=== PATIENT | female | born 1955 | race Hispanic/Latino ===

== ENCOUNTER 2017-08-06 10:17 | Emergency (ER) | payer BC ==
[2017-08-06 10:21] VITALS: BP 132/71; RESP 20; TEMP 97.9; O2SAT 99; BMI 25.1
--- NOTE | 2017-08-06 11:21 | ED PDOC ---
HPI: Headache Time Seen by Provider: 08/06/17 10:26 Chief Complaint (Nursing): Dizziness/Lightheaded Chief Complaint (Provider): Dizziness/Headache History Per: Patient History/Exam Limitations: no limitations Onset/Duration Of Symptoms: Hrs (morning prior to arrival ) Current Symptoms Are (Timing): Still Present Quality: Dull Preceeding Symptoms: None Associated Symptoms: Nausea Additional History Per: Patient Additional Complaint(s): Catrina Jansen is a 62 year old female presenting to the ED for an evaluation of dizziness beginning this morning prior to arrival. The patient states she woke up and started having dizziness, described as a spinning sensation associated with a headache. She reports taking Advil without relief. The patient reports her dizziness worsens on ambulation and is better when lying still. She denies any weakness, numbness, tingling, vision changes, syncope, difficulty with walking, speech changes, chest pain, or difficulty breathing. Of note, the patient reports being diagnosed with URI/Bronchitis and was prescribed Prednisone and Amoxicillin by her PMD, currently on these medications upon arrival to ED. Since then she states having side effects such as headaches and dizziness. In addition, the patient has chronic tinnitus in her bilateral ears. PMD: Joel Vaz MD - Risk Factors SAH Risk Factors: Nest Degree Relative(s) W/SAH, Marfan's Syndrome, Worst Headache Of Life Past Medical History Reviewed: Historical Data, Nursing Documentation, Vital Signs Vital Signs: Last Vital Signs Temp 97.9 F 08/06/17 10:20 Pulse 57 L 08/06/17 10:20 Resp 20 08/06/17 10:20 BP 132/71 08/06/17 10:20 Pulse Ox 99 08/06/17 10:20 - Medical History PMH: No Chronic Diseases - Surgical History Surgical History: No Surg Hx - Family History Family History: States: No Known Family Hx - Social History Alcohol: None Drugs: Denies - Home Medications Home Medications: Ambulatory Orders Medication Instructions Recorded Meclizine [Meclizine*] 25 mg PO TID PRN #20 tab 08/06/17 - Allergies Allergies/Adverse Reactions: Allergies Allergy/AdvReac Type Severity Reaction Status Date / Time No Known Allergies Allergy Verified 08/06/17 10:27 Review of Systems ROS Statement: Except As Marked, All Systems Reviewed And Found Negative Eyes: Negative for: Vision Change Cardiovascular: Negative for: Chest Pain Respiratory: Negative for: Other (no difficulty breathing) Neurological: Positive for: Headache, Dizziness. Negative for: Weakness, Numbness (or tingling), Incoordination (no difficulty with walking), Other (no episodes of syncope; no speech changes) Physical Exam - Reviewed Nursing Documentation Reviewed: Yes Vital Signs Reviewed: Yes - Physical Exam Appears: Positive for: Non-toxic, No Acute Distress Head Exam: Positive for: ATRAUMATIC, NORMOCEPHALIC Skin: Positive for: Normal Color, Warm, Dry Eye Exam: Positive for: EOMI, PERRL. Negative for: Nystagmus ENT: Positive for: Normal ENT Inspection Neck: Positive for: Painless ROM, Supple Cardiovascular/Chest: Positive for: Regular Rate, Rhythm. Negative for: Edema, Murmur Respiratory: Positive for: Normal Breath Sounds. Negative for: Rales, Wheezing , Respiratory Distress Gastrointestinal/Abdominal: Positive for: Normal Exam, Soft. Negative for: Tenderness Back: Positive for: Normal Inspection Extremity: Positive for: Normal ROM Neurologic/Psych: Positive for: Alert, Oriented (x3), Gait (steady). Negative for: Motor/Sensory Deficits - Laboratory Results Result Diagrams: 08/06/17 11:27 08/06/17 11:27 - ECG ECG: Positive for: Interpreted By Me, Viewed By Me ECG Rhythm: Positive for: Normal QRS, Normal ST Segment, Sinus Rhythm, Sinus Bradycardia. Negative for: ST/T Changes Rate: 51 O2 Sat by Pulse Oximetry: 99 (RA) Pulse Ox Interpretation: Normal - Progress Re-evaluation Time: 13:04 Condition: Re-examined, Improved Medical Decision Making Medical Decision Making: Time: 10:26 Impression: Vertigo Differential diagnosis includes peripheral vertigo, BVP, vestibular syndrome with other conditions considered. Less likely central vertigo associated with CVA. Plan: * ED ekg * BMP * Troponin I * CBC (with differential) * Antivert 25 mg PO * CT Head w/o Contrast * Reevaluation CT Head: FINDINGS: HEMORRHAGE: No intracranial hemorrhage. BRAIN: No mass effect or edema. No atrophy or chronic microvascular ischemic changes. VENTRICLES: Unremarkable. No hydrocephalus. CALVARIUM: Unremarkable. PARANASAL SINUSES: Unremarkable as visualized. No significant inflammatory changes. MASTOID AIR CELLS: Unremarkable as visualized. No inflammatory changes. OTHER FINDINGS: None. IMPRESSION: No acute intracranial abnormalities. No significant findings to account for the clinical presentation. Scribe Attestation: Documented by Keya Horn, acting as a scribe for Rishi Cononr MD. Provider Scribe Attestation: All medical record entries made by the Scribe were at my direction and personally dictated by me. I have reviewed the chart and agree that the record accurately reflects my personal performance of the history, physical exam, medical decision making, and the department course for this patient. I have also personally directed, reviewed, and agree with the discharge instructions and disposition. Disposition - Clinical Impression Clinical Impression: Dizziness - Patient ED Disposition Is Patient to be Admitted: No Doctor Will See Patient In The: Office Counseled Patient/Family Regarding: Studies Performed, Diagnosis, Need For Followup - Disposition Referrals: Joel Vaz MD [Family Provider] - Disposition: Routine/Home Disposition Time: 13:04 Condition: GOOD Additional Instructions: Take your medications as instructed. Follow up with your PCP In 2-3 days. Prescriptions: Meclizine [Meclizine*] 25 mg PO TID PRN #20 tab PRN Reason: Dizziness Instructions: Vertigo (ED)
[2017-08-06 11:30] LABS: BASO # 0.1 K/uL (0.0-0.2); BASO % 1.1 % (0.0-2.0); EOS # 0.4 K/uL (0.0-0.7); EOS % 3.5 % (0.0-4.0); HEMATOCRIT 42.2 % (34.0-47.0); LYMPH # 4.1 K/uL (1.0-4.3); LYMPH % 34.5 % (20.0-40.0); MEAN CELL VOLUME 89.5 fl (81.0-99.0); MEAN CORPUSCULAR HEMOGLOBIN 30.1 pg (27.0-31.0); MEAN CORPUSCULAR HGB CONC 33.6 g/dL (33.0-37.0); MONO % 8.3 % (0.0-10.0); NEUT # 6.3 K/uL (1.8-7.0); NEUT % 52.6 % (50.0-75.0); RED CELL DISTRIBUTION WIDTH 12.9 % (11.5-14.5)
[2017-08-06 11:43] LABS: BLOOD UREA NITROGEN 17 mg/dl (7-17); CALCIUM 9.1 mg/dL (8.4-10.2); CARBON DIOXIDE 29 mmol/L (22-30); CHLORIDE 103 mmol/L (98-107); GFR AFRICAN-AMERICAN > 60; GLUCOSE,RANDOM 95 mg/dL (65-105); POTASSIUM 4.6 MMOL/L (3.6-5.0); SODIUM 141 mmol/l (132-148)
--- NOTE | 2017-08-06 12:16 | CT ---
PROCEDURE: CT HEAD WITHOUT CONTRAST. HISTORY: dizziness COMPARISON: None available. TECHNIQUE: Axial computed tomography images were obtained through the head/brain without intravenous contrast. Radiation dose: Total exam DLP = 912.04 mGy-cm. This CT exam was performed using one or more of the following dose reduction techniques: Automated exposure control, adjustment of the mA and/or kV according to patient size, and/or use of iterative reconstruction technique. FINDINGS: HEMORRHAGE: No intracranial hemorrhage. BRAIN: No mass effect or edema. No atrophy or chronic microvascular ischemic changes. VENTRICLES: Unremarkable. No hydrocephalus. CALVARIUM: Unremarkable. PARANASAL SINUSES: Unremarkable as visualized. No significant inflammatory changes. MASTOID AIR CELLS: Unremarkable as visualized. No inflammatory changes. OTHER FINDINGS: None. IMPRESSION: No acute intracranial abnormalities. No significant findings to account for the clinical presentation.
[2017-08-06 13:21] VITALS: PULSE 71
--- NOTE | 2017-08-07 06:37 | CARD ---
APPROVED REPORT EKG Measurement Heart [id number] <Conclusion> Sinus bradycardia Otherwise normal ECG
== END 2017-08-06 13:20 | disposition home or self-care (01) ==
LOC: H.ER 10:17
DX: R42 Dizziness and giddiness (principal)

== ENCOUNTER 2018-06-21 12:12 | Emergency (ER) | payer BC ==
[2018-06-21 12:12] VITALS: BMI 25.1
[2018-06-21 12:19] VITALS: BP 126/64; PULSE 74; RESP 18; TEMP 99.2; O2SAT 100
[2018-06-21] MEDS ORDERED: PROPARACAINE/FLUORESCEIN SOD 100 DROP/5 ML BOTTLE OS STA (12:42)
[2018-06-21] MEDS ORDERED: PROPARACAINE/FLUORESCEIN SOD 100 DROP/5 ML BOTTLE ONE (13:01)
--- NOTE | 2018-06-21 13:20 | ED PDOC ---
HPI: Eye Injury/Pain Time Seen by Provider: 06/21/18 12:20 Chief Complaint (Nursing): Eye Problem Chief Complaint (Provider): Eye Problem History Per: Patient History/Exam Limitations: no limitations Onset/Duration Of Symptoms: Sudden Onset Current Symptoms Are (Timing): Still Present Additional Complaint(s): 62 year old female arrives to ED with a complaint of left eye pain sustained after she felt an unknown object from nearby [place] job strike her eye while waiting at a bus stop prior to arrival. She denies any headache or visual changes. PMD: Dr. Joel Vaz Past Medical History Reviewed: Historical Data, Nursing Documentation, Vital Signs Vital Signs: Last Vital Signs Temp 99.2 F 06/21/18 12:16 Pulse 74 06/21/18 12:16 Resp 18 06/21/18 12:16 BP 126/64 06/21/18 12:16 Pulse Ox 100 06/21/18 12:16 - Family History Family History: States: Unknown Family Hx - Home Medications Home Medications: Ambulatory Orders Medication Instructions Recorded Meclizine [Meclizine*] 25 mg PO TID PRN #20 tab 08/06/17 - Allergies Allergies/Adverse Reactions: Allergies Allergy/AdvReac Type Severity Reaction Status Date / Time clindamycin Allergy RASH Verified 06/21/18 12:15 prednisone Allergy SWELLING Verified 06/21/18 12:16 Review of Systems ROS Statement: Except As Marked, All Systems Reviewed And Found Negative Eyes: Positive for: Pain (left). Negative for: Vision Change Neurological: Negative for: Headache Physical Exam - Reviewed Nursing Documentation Reviewed: Yes Vital Signs Reviewed: Yes - Physical Exam Appears: Positive for: No Acute Distress Head Exam: Positive for: ATRAUMATIC, NORMAL INSPECTION, NORMOCEPHALIC Eye Exam: Positive for: EOMI, PERRL, Other (small subconjunctival hemorrhage in left medial eye) Neurologic/Psych: Positive for: Alert (x3), Oriented - ECG O2 Sat by Pulse Oximetry: 100 (RA) Pulse Ox Interpretation: Normal Medical Decision Making Medical Decision Making: Initial Impression: Eye injury Initial Plan: * Flucaine eye drops Time: 1300 --Fluorescein eye stain test performed (see procedure note). Time: 1311 --Upon provider reevaluation, patient is medically stable and requires no further treatment in the ED at this time. Patient will be discharged home and advised to follow up with her optical dispenser in 1-2 days. Counseling was provided and all questions were answered regarding diagnosis. There is agreement to discharge plan. Return if symptoms persist or worsen. Clinical Impression: Subconjunctival hemorrhage of left eye Scribe Attestation: Documented by Sydney Joy, acting as a scribe for Lois Eller PA-C. Provider Scribe Attestation: All medical record entries made by the Scribe were at my direction and personally dictated by me. I have reviewed the chart and agree that the record accurately reflects my personal performance of the history, physical exam, medical decision making, and the department course for this patient. I have also personally directed, reviewed, and agree with the discharge instructions and disposition. Procedures - Eye Procedure Progress: Time: 1300 Fluorescein eye stain test --Verbal consent obtained from patient. --Flucaine eye drops administered to left eye. --No corneal abrasion or uptake noted. --Patient tolerated procedure well without complications. Post vision screening: --Right eye: 20/30 --Left eye: 20/30 --Bilateral: 20/25 Disposition - Clinical Impression Clinical Impression: Subconjunctival hemorrhage of left eye - Patient ED Disposition Is Patient to be Admitted: No Counseled Patient/Family Regarding: Studies Performed, Diagnosis, Need For Followup - Disposition Disposition: Routine/Home Disposition Time: 13:11 Condition: GOOD Instructions: Subconjunctival Hemorrhage Forms: [employer] ([place]rainian)
== END 2018-06-21 16:44 | disposition home or self-care (01) ==
LOC: H.ER 12:12
DX: H11.32 Conjunctival hemorrhage, left eye (principal); Y99.0 Civilian activity done for income or pay